=== PATIENT | female | born 1965 | race Caucasian/White ===

== ENCOUNTER 2018-05-18 22:10 | Emergency (ER) | payer BC ==
[~2018-05-18] VITALS: Ht 162.6 cm; Wt 72.7 kg
[2018-05-18 22:15] VITALS: BP 118/56; TEMP 98.4
[2018-05-18] MEDS ORDERED: DUO-KAPS1 CAP PO (22:28)
[2018-05-18] MEDS ORDERED: ZOCOR 20MG20 MG PO (22:28)
[2018-05-18] MEDS ORDERED: HYZAAR 50-12.1 UDTAB PO (22:28)
[2018-05-18 23:35] VITALS: PULSE 95
== END 2018-05-18 23:35 | disposition home or self-care (01) ==
LOC: COL.ER 22:10
DX: S51.011A Laceration without foreign body of right elbow, initial encounter (principal); W01.0XXA Fall on same level from slipping, tripping and stumbling without subsequent striking against object, initial encounter